=== PATIENT | male | born 1955 | race Hispanic/Latino ===

== ENCOUNTER 2017-05-23 06:14 | Day surgery (SDC) | payer MEDICARE, BC ==
[2017-05-15 13:14] VITALS: BMI 47.5
[2017-05-23] MEDS ORDERED: Propofol 10 mg/ml Inj (20 ML) ONE ×3 (08:01→08:29)
[2017-05-23] MEDS ORDERED: Lidocaine 2% Inj (20ml) ONE (08:01)
[2017-05-23] MEDS ORDERED: Etomidate 20 mg/10ml Inj IV ONE (08:01)
[2017-05-23] MEDS ORDERED: Sodium Chloride 0.9% 1,000 ML IV SCH (08:45)
[2017-05-23 08:51] VITALS: O2SAT 99
[2017-05-23 09:40] VITALS: BP 158/91; PULSE 73; RESP 16; TEMP 98.1
== END 2017-05-23 09:39 | disposition home or self-care (01) ==
LOC: ENDO 06:14
PROVIDERS: ATTEND Specialist
DX: Z12.11 Encounter for screening for malignant neoplasm of colon (principal); D12.3 Benign neoplasm of transverse colon; K57.30 Diverticulosis of large intestine without perforation or abscess without bleeding; K64.8 Other hemorrhoids; I10 Essential (primary) hypertension

== ENCOUNTER 2018-09-25 06:48 | Outpatient (CLI) | payer MEDICARE, BC | END 2018-09-25 06:49 | disposition home or self-care (01) | LOC: RAD 06:48 ==